=== PATIENT | male | born 1950 | race Caucasian/White ===

== ENCOUNTER → 2016-06-21 | Outpatient (CLI) | payer MEDICARE ==
[2016-06-21 11:08] LABS: HEMOGLOBIN 16.6 gm/dl (14.0-17.5); RED BLOOD COUNT 5.49 M/UL (4.20-5.50); WHITE BLOOD COUNT 7.1 K/UL (4.5-11.0)
[2016-06-21 11:42] LABS: BUN/CREATININE RATIO 14 (0-10)
== END ==
PROVIDERS: Nurse Practitioner Family
DX: Z12.5 Encounter for screening for malignant neoplasm of prostate (principal); R10.31 Right lower quadrant pain; N52.9 Male erectile dysfunction, unspecified; Z13.220 Encounter for screening for lipoid disorders; Z53.9 Procedure and treatment not carried out, unspecified reason
CPT/HCPCS: 36415; 80053; 80061; 84403; 84443; 85025; G0103; Q9962

== ENCOUNTER → 2016-06-28 | Outpatient (CLI) | payer MEDICARE | LOC: CT 09:16 | DX: R10.31 Right lower quadrant pain (principal) | CPT/HCPCS: 36415; 80053; 80061; 84403; 84443; 85025; G0103; J7050; Q9962 ==